=== PATIENT | male | born 1960 | race Caucasian/White ===

== ENCOUNTER 2024-04-16 12:42 | Emergency (ER) | payer OTHER ==
[~2024-04-16] VITALS: Ht 170.2 cm; Wt 86.3 kg
[2024-04-16 12:58] VITALS: BP 146/77; PULSE 56; RESP 18; TEMP 97.7; O2SAT 98
[2024-04-16 13:49] LABS: BASOPHILS % (AUTO) 0.9 % (0.0-2.0); EOSINOPHILS # (AUTO) 0.1 K/uL (0-0.4); EOSINOPHILS % (AUTO) 1.2 % (0.0-4.0); HEMATOCRIT 41.4 % (36-52); HEMOGLOBIN 14.3 g/dL (12.0-18.0); LYMPHOCYTES # (AUTO) 1.6 K/uL (2.0-11.5); LYMPHOCYTES % (AUTO) 27.7 % (20.5-51.1); MEAN CORPUSCULAR HEMOGLOBIN 33 pg (27-31); MEAN CORPUSCULAR HGB CONC 35 g/dL (33-37); MEAN CORPUSCULAR VOLUME 96.2 fL (80-94); MONOCYTES # (AUTO) 0.5 K/uL (0.8-1.0); NEUTROPHILS # (AUTO) 3.6 K/uL (1.8-7.7); NEUTROPHILS % (AUTO) 62.2 % (42.2-75.2); PLATELET COUNT (AUTO) 216 K/uL (140-450); RED CELL DISTRIBUTION WIDTH 13.1 % (11.6-13.7); WHITE BLOOD COUNT (AUTO) 5.8 K/uL (4.8-10.8)
[2024-04-16 14:05] LABS: ANION GAP 13.7 (8-16); CALCIUM 8.8 mg/dL (8.5-10.1); CARBON DIOXIDE 25.3 mmol/L (21-32); CREATININE 1.2 mg/dL (0.6-1.3)
[2024-04-16 16:14] VITALS: BP 129/75; PULSE 52; RESP 17; TEMP 98.3; O2SAT 96
== END 2024-04-16 16:50 | disposition home or self-care (01) ==
LOC: MED 12:42
DX: R07.2 Precordial pain (principal); I10 Essential (primary) hypertension; F17.200 Nicotine dependence, unspecified, uncomplicated
CPT/HCPCS: 36415; 71045; 80048; 84484; 85025; 93005; 99285; Q0092

== ENCOUNTER 2024-05-09 01:04 | Inpatient (IN) | payer OTHER ==
[2024-05-09] VITALS (8 sets, daily range): BP systolic 120–171; BP diastolic 74–93; PULSE 54–68; RESP 16–18; TEMP 97.3–98.6; O2SAT 97–99
[~2024-05-09] VITALS: Ht 167.6 cm; Wt 95.3 kg
--- NOTE | 2024-05-09 01:10 | NUR ---
PT AMB TO ER BED 7.
--- NOTE | 2024-05-09 01:20 | NUR ---
63YR ODL MALE AOX4 BIB SELF C/O CHEST PAIN 05/25 - PRESSURE-LIKE - THAT STARTED AROUND 2100 TONIGHT WHILE WATCHING TV. PAIN IS LOCATED MID CHEST AND IS NON RADIATING. PT UNSURE OF WHAT MAKES PAIN WORSE OR BETTER. PT ENDORSES HE HAS HAD THIS PAIN INTERMITTENTLY [id number], SEEN IN ER X2-3 WEEKS AGO AND WAS DISCHARGED HOME. PT DENIES SOB. PT ON BEDSIDE MONITOR, CALL LIGHT WITHIN REACH. NKDA HTN
--- NOTE | 2024-05-09 01:21 | NUR ---
LAB AT BEDSIDE.
--- NOTE | 2024-05-09 01:25 | NUR ---
DR. PEREZ EXAMINING PT.
[2024-05-09 01:36] LABS: ANION GAP 13.8 (8-16); CALCIUM 8.4 mg/dL (8.5-10.1); CARBON DIOXIDE 26.3 mmol/L (21-32); CREATININE 1.3 mg/dL (0.6-1.3); POTASSIUM 4.1 mmol/L (3.5-5.1)
[2024-05-09 01:38] LABS: BASOPHILS # (AUTO) 0.4 K/uL (0.00-0.22); EOSINOPHILS # (AUTO) 0.1 K/uL (0-0.4); EOSINOPHILS % (AUTO) 2.1 % (0.0-4.0); HEMATOCRIT 37.3 % (36-52); HEMOGLOBIN 13.2 g/dL (12.0-18.0); LYMPHOCYTES % (AUTO) 15.1 % (20.5-51.1); MEAN CORPUSCULAR HEMOGLOBIN 34 pg (27-31); MEAN CORPUSCULAR HGB CONC 35 g/dL (33-37); MEAN CORPUSCULAR VOLUME 96.3 fL (80-94); MONOCYTES # (AUTO) 0.7 K/uL (0.8-1.0); MONOCYTES % (AUTO) 9.5 % (1.7-9.3); NEUTROPHILS # (AUTO) 4.7 K/uL (1.8-7.7); NEUTROPHILS % (AUTO) 67.8 % (42.2-75.2); PLATELET COUNT (AUTO) 250 K/uL (140-450); RED BLOOD CELL COUNT(AUTO) 3.87 MIL/uL (4.20-6.10); RED CELL DISTRIBUTION WIDTH 13.8 % (11.6-13.7); WHITE BLOOD COUNT (AUTO) 6.9 K/uL (4.8-10.8)
[2024-05-09 01:39] LABS: BASOPHILS % (AUTO) 5.5 % (0.0-2.0)
[2024-05-09] MEDS: ACETAMINOPHEN 325 MG TAB PO ONE (01:42)
[2024-05-09] MEDS: IBUPROFEN 400 MG TAB PO ONE (01:43)
[2024-05-09] MEDS: HEPARIN PER PHARMACY MC ONE (04:30)
[2024-05-09] MEDS: hePARIN / DEXT 5% PREMIX 250 ML IV ONE (04:30)
--- NOTE | 2024-05-09 04:57 | NUR ---
PT RESTING IN BED, BREATHS EVEN AND UNLABORED. PT ON BEDSIDE MONITOR, CALL LIGHT WITHIN REACH. ALL NEEDS MET AT THIS TIME.
[2024-05-09 06:06] LABS: INR 1.11 (0.8-1.2); PROTHROMBIN TIME 11.6 secs (10.8-13.4)
--- NOTE | 2024-05-09 06:21 | NUR ---
SPOKE TO DR. JUAN DIEGO CONNOLLYING TROPININ LEVELS. DR. ADAMSON GAVE TELEPHONE ORDER OF THE FOLLOWING: * METOPROLOL TARTRATE 25MG BID (START NOW) HOLD IF SVT LESS THAN 100; KY LESS THAN 60 * LISINOPRIL 5MG @0900 DAILY HOLD IF SVT LESS THAN 100 *ATORVASTATIN 810MG DAILY (START NOW) * HEPARIN DRIP DCS * CARDIO CONSULT - DR. JACY GRANT
[2024-05-09] MEDS ORDERED: ASPIRIN 325 MG TAB ONE (06:34)
[2024-05-09] MEDS: ASPIRIN 325 MG TAB PO ONE (06:36)
[2024-05-09] MEDS ORDERED: HEPARIN PER PHARMACY MC PRN ×2 (06:45→09:50)
--- NOTE | 2024-05-09 07:25 | NUR ---
REPORT RECEIVED FROM EMMANUEL GROSS. ASSUMED CARE AT THIS TIME
--- NOTE | 2024-05-09 07:30 | NUR ---
pt awake and at rest. states pain relief. changed into gown. on monitoring and evaluation advisor. bed at lowest position, bed railsupx2. call light within reach.
--- NOTE | 2024-05-09 07:45 | NUR ---
MD LESTER HERNANDEZ. ORDER TO START HEPARIN DRIP CONFIRMED.
[2024-05-09] MEDS: hePARIN / DEXT 5% PREMIX 250 ML IV SCH ×2 (08:08→10:21)
--- NOTE | 2024-05-09 08:23 | NUR ---
Patient will be admitted to care of MD ADAMSON. Admited to TELE. Will go to room 106B. Belongings list completed. Report to JOHN BRENDEN.
--- NOTE | 2024-05-09 08:30 | NUR ---
Chart checked and completed. The patient's care was reviewed and supervised by ELI YBARRA RN.
--- NOTE | 2024-05-09 09:00 | NUR ---
RECEIVED PATIENT FROM ED. VITALS STABLE, PATIENT AMBULATORY VERBALIZES NO CONCERNS. PATIENT ON HEPARIN DRIP 10ML/HR
[2024-05-09] MEDS: ATORVASTATIN 80 MG TAB PO SCH (09:46)
[2024-05-09] MEDS: ASPIRIN 81 MG TAB.CHEW PO SCH (09:46)
[2024-05-09] MEDS: PANTOPRAZOLE 40 MG TABEC PO SCH (09:46)
[2024-05-09] MEDS: METOPROLOL 25 MG TAB PO SCH (09:46)
[2024-05-09] MEDS: lisinopriL 5 MG TAB PO SCH (09:46)
[2024-05-09] MEDS ORDERED: Heparin Per Pharmacy MC (12:33)
[2024-05-09] MEDS ORDERED: ASPI81CT95 PO (12:33)
[2024-05-09] MEDS ORDERED: LISI5TAB24 PO (12:33)
[2024-05-09] MEDS ORDERED: METO25TA PO (12:33)
[2024-05-09] MEDS ORDERED: PANT40EC56 PO (12:33)
[2024-05-09] MEDS ORDERED: HEPA500056 IV (12:33)
[2024-05-09] MEDS ORDERED: LIP80 PO (12:33)
[2024-05-09] MEDS ORDERED: HEPA-133 IV (12:33)
--- NOTE | 2024-05-09 14:00 | NUR ---
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 PATIENT [facility] FOR CATH ANGIOGRAM
--- NOTE | 2024-05-09 14:08 | NUR ---
Called [facility] and spoke to Deborah, stated to call insurance and get auth. Called [employer] and were closed and left a message. Faxed clinical to [facility]. [facility] do accept [employer] but Todd burkett not have privilege
--- NOTE | 2024-05-09 18:55 | NUR ---
PATIENT FOR HIGHER LEVEL OF CARE, GOING TO [facility] FOR CATH ANGIOGRAM UNDER DR KING. AUTHORIZATION NUMBER ([id number]) GIVEN BY DEMO SPECIALIST LUZ [phone]. SINGEING TORCH OPERATOR CALLED, PATIENT CAN BE TRANSFERRED TOMORROW TO [facility] ARE[facility] IN [facility]. PATIENT TO UNDERGO CATH ANGIOGRAM WITH DOCTOR KING AT 1400H 05/10/24
--- NOTE | 2024-05-09 19:30 | NUR ---
RECEIVED REPORT FROM DAY NURSE FOR CONTINUITY OF CARE, PATIENT IS WAKE AND ALERT, DENIES PAIN UPON INITIAL ASSESSMENT, NO C/O SOB, POC ONGOING, HEPARIN DRIP INFUSING PER MD ORDERED ON RIGHT WRIST, BED IN LOW AND LOCKED POSITION.
--- NOTE | 2024-05-09 19:33 | NUR ---
SPOKE WITH JOSLYN OF [facility], ARRANGED WILL CALL FOR TAWNYA, TRANSFER TO [facility]. NO CONFIRMATION NUMBER JUST PROVIDE NAME OF PT PER JOSLYN.
--- NOTE | 2024-05-09 20:31 | NUR ---
SCHEDULED MEDICATION GIVEN ORDERED, PATIENT IS AWAKE, WATCHING TV, DENIES PAIN, DENIES SOB, CALL LIGHT WITHIN REACH.
--- NOTE | 2024-05-09 20:42 | NUR ---
RECEIVED CRITICAL LAB RESULT, TROPONIN 4573, TRENDING DOWN, PTT 58.1, FOLLOWING PER HEPARIN PROTOCOL, NOT REPORTED TO MD.
--- NOTE | 2024-05-09 22:46 | NUR ---
PATIENT IS AWAKE, DENIES CHEST PAIN, DENIES SOB, HEPARIN INFUSING ORDERED, GIVEN NON SKID SOCKS, CALL LIGHT WITHIN REACH.
[2024-05-10] VITALS: BP 124/70; PULSE 55; PULSE 60; RESP 18; TEMP 97.4; O2SAT 98
[2024-05-10 04:00] VITALS: BP 100/55; PULSE 58; RESP 18; TEMP 97.4; O2SAT 97
[2024-05-10 04:05] VITALS: PULSE 51
--- NOTE | 2024-05-10 06:22 | NUR ---
PATIENT IS AWAKE, DENIES CHEST PAIN, DENIES SOB, HEPARIN DRIP INFUSING ORDERED, CALL LIGHT WITHIN REACH.
--- NOTE | 2024-05-10 07:15 | NUR ---
ENDORSED PATIENT TO DAY NURSE FOR CONTINUITY OF CARE. PATIENT IS STABLE.
--- NOTE | 2024-05-10 07:51 | NUR ---
PATIENT RECEIVED AT BED SIDE FROM NIGHT NURSE , [id number] , AWAKE , ON HEPARIN DRIP VSS , SINUS ARNOLD CARDIA ON MONITOR , AMBULATORY , CONTINENT , SAFETY PRECAUTION ON PLACE , SIDE RAILS UP X2 , BED IN LOWER POSITION , CALL LIGHT WITHIN REACH , ON CARDIAC DIET , PT FOR TRANSFER TO [facility] TODAY CORONORY ANGIOGRAM , PT STILL UNDER OBSERVE
[2024-05-10 08:00] VITALS: BP 131/61; PULSE 51; RESP 20; TEMP 97.1; O2SAT 96
[2024-05-10 08:10] VITALS: PULSE 54
[2024-05-10 08:24] LABS: BASOPHILS % (AUTO) 0.7 % (0.0-2.0); EOSINOPHILS # (AUTO) 0.1 K/uL (0-0.4); EOSINOPHILS % (AUTO) 2.3 % (0.0-4.0); HEMATOCRIT 34.1 % (36-52); HEMOGLOBIN 11.7 g/dL (12.0-18.0); LYMPHOCYTES # (AUTO) 1.4 K/uL (2.0-11.5); LYMPHOCYTES % (AUTO) 28.7 % (20.5-51.1); MEAN CORPUSCULAR HEMOGLOBIN 33 pg (27-31); MEAN CORPUSCULAR HGB CONC 34 g/dL (33-37); MEAN CORPUSCULAR VOLUME 96.7 fL (80-94); MONOCYTES # (AUTO) 0.4 K/uL (0.8-1.0); NEUTROPHILS # (AUTO) 2.9 K/uL (1.8-7.7); NEUTROPHILS % (AUTO) 59.3 % (42.2-75.2); PLATELET COUNT (AUTO) 192 K/uL (140-450); RED BLOOD CELL COUNT(AUTO) 3.52 MIL/uL (4.20-6.10); RED CELL DISTRIBUTION WIDTH 13.9 % (11.6-13.7)
[2024-05-10 08:38] LABS: ALBUMIN 2.7 g/dL (3.4-5.0); ANION GAP 9.3 (8-16); CALCIUM 8.2 mg/dL (8.5-10.1); CARBON DIOXIDE 29.6 mmol/L (21-32); MAGNESIUM 1.8 mg/dL (1.8-2.4); POTASSIUM 3.9 mmol/L (3.5-5.1); TOTAL BILIRUBIN 1.4 mg/dL (0.0-1.0); TOTAL PROTEIN, SERUM 5.8 g/dL (6.4-8.2)
--- NOTE | 2024-05-10 09:01 | NUR ---
PATIENT HAS BEEN SCREENED AND CATEGORIZED LOW NUTRITION RISK. PATIENT WILL BE SEEN WITHIN 7 DAYS OF ADMISSION. 05/16/[address]
--- NOTE | 2024-05-10 09:16 | NUR ---
DISCHARGE PLANNING: RECEIVED REPORT PATIENT FOR ANGIOGRAM IN [facility] MD HAD SCHEDULED THE PROCEDURE AT 2PM TODAY NEED TO [facility]SPORT[facility]. CALLED [facility] [phone] SPOKE WITH SUMAYA AND MADE AWARE OF THE ORDER AND HAVE AUTHORIZATION ALREADY TO TRANSFER THE PATIENT TO [facility] AND JUST NEED AUTH FOR THE TRANSPORTATION. PER SUMAYA TO CALL [facility]. CALLLED [facility] [phone] SPOKE WITH THAD AND MADE AWARE REGARDING THE NEED FOR AUTH. PER THAD TO FAX CLINICALS AND ORDER. PATIENT'S CLINICAL AND ORDER FAXED TO [phone]. CALLED [facility] [phone] SPOKE WITH YANDY , STATED PT WAS SCHEDULED AT 2PM AND NEED TO BE THERE BY 12 PM, THEY DID NOT GET THE CLINICALS YET, PATIENT'S CLINICALS AND ORDER FAXED TO [phone]. CM TO FOLLOW UP. Addendum: 05/10/24 at 1010 by PEDRO HIGGINS CM FOLLOWED UP WITH [facility] SPOKE WITH MARIO AND ASKED TO REFAX THE ORDER AND CLINICALS, AND REFAXED CLINICALS AND ORDER URGENT FOR TRANSPORTATION AUTH. AT 10:02 FOLLOWED UP WITH [facility] [phone] SPOKE WITH SCOTT AND STATED HE WILL CALL BACK ON THE NUMBER PROVIDED FOR THE AUTH. CM TO FOLLOW UP. Addendum: 05/10/24 at 1120 by PEDRO HIGGINS RECEIVED A CALL FROM PRIYA FROM [facility] AND GAVE THIS CM VERBAL AUTHORIZATIONFOR TRANSPORTATION ( [facility]) TO TRANSFER PT TO [facility] [phone] . CALLED [facility] ADMITTING DEPT [phone] SPOKE WITH YANDY AND ASKED REGARDING ROOM AND BED FOR THE PT. AND WAS TRANSFERRED TO [facility] SPOKE WITH MADELINE BERTRAND AND PER TONY PT IS GOING TO ROOM 252 A AND TO GIVE REPORT TO [phone]. CN AND RN ON DUTY MADE AWARE. DR. Roxy KING MADE AWARE.
--- NOTE | 2024-05-10 10:47 | NUR ---
ARRANGED TRANSPORT WITH [facility] [phone] FOR A ALS TRANSPORT WITH CARDIAC MONITORING FOR PATIENT GOING TO [facility] [address] PATIENT WILL GO TO ROOM 252A UNDER DR KING. [facility] WILL BE HERE IN 20 MIN NURSE ALYSSA AWARE OF ABOVE INFO.
[2024-05-10 10:51] VITALS: BP 131/67; PULSE 51; RESP 20; TEMP 97.1
--- NOTE | 2024-05-10 11:10 | NUR ---
i called [facility] on number [phone] to give report nurse said they are busy she ask for the floor number to call me back when thy are free , nurse aware the milk pickup truck driver time at 1120 am .
--- NOTE | 2024-05-10 11:30 | NUR ---
PATIENT HAS TRANSFER TO [facility] DISCHARGE PACKET GIVEN TO HIS ALL DISCHARGE INSTRUCTION GIVEN TO PATIENT , PT VERBALIZED UNDERSTAND OF GIVEN ASLL HIS DOCUMENT SIGNED AND PLACE ON CHART, COPY OF CHART GIVEN TO AMBULANCE TEAM TO GIVE IT TO THE HOSPITAL , PATIENT DC WITH IV , HEART MONITOR REMOVED PICKED UP BY AMBULANCE .
--- NOTE | 2024-05-10 11:38 | NUR ---
REPORT GIVEN TO TO BRENDEN LA ALL HER QUESTION ANSWERED , I ADDRESS PT ON HEPARIN DRIP [id number] , LAST PTT 50.8 TOW REEDING PTT NO HOGUE , NEXT PTT ITS SUPPOSED DRAW AT 0900AM 05/11 NURSE SAID OK .
== END 2024-05-10 11:25 | DRG 281 ==
LOC: MED 01:04 → MTU 05:59
PROVIDERS: ADMIT Student in an Organized Health Care Education/Training Program; ATTEND Student in an Organized Health Care Education/Training Program
DX: I21.4 Non-ST elevation (NSTEMI) myocardial infarction (principal); I16.1 Hypertensive emergency; F17.200 Nicotine dependence, unspecified, uncomplicated; E78.00 Pure hypercholesterolemia, unspecified; Z79.82 Long term (current) use of aspirin; Z79.01 Long term (current) use of anticoagulants; Z79.899 Other long term (current) drug therapy
CPT/HCPCS: 36415; 71045; 80048; 80053; 83735; 84484; 85025; 85610; 85730; 87081; 93005; 99291; J1644; Q0092